=== PATIENT | female | born 1970 | race Caucasian/White ===

== ENCOUNTER 2020-01-28 23:05 | Emergency (ER) | payer BC, SELFPAY ==
[2020-01-28 23:17] VITALS: BP 123/88; PULSE 95; RESP 19; O2SAT 99; BMI 26.6
--- NOTE | 2020-01-28 23:21 | XR_ITS ---
PROCEDURE: XR TIBIA FIBULA RT 2V CLINICAL INDICATION: fall Posttraumatic pain COMPARISON: CR XR ANKLE RT MIN 3V from 01/28/2020 FINDINGS: No fracture or dislocation. No lytic or blastic change. There is normal mineralization. The joint spaces are well-preserved. No significant degenerative/arthritic changes. No erosive changes evident. Other findings:There is mild soft tissue swelling overlying the lateral malleolus. There is a faint calcific density at the tip of the lateral malleolus between the lateral malleolus and the talus which could represent a small avulsion injury. This measures approximately 2 mm. IMPRESSION: Possible small avulsion fracture of the lateral malleolus with soft tissue swelling otherwise negative Dictated by: Fawad Fine MD 01/29/2020 04:44 Fawad Fine MD in [place] 01/29/2020 04:44
--- NOTE | 2020-01-28 23:28 | HMH.EDLOEX ---
ED Disposition Clinical Impression: Ankle sprain and strain Disposition: Home, Self-Care Condition on Discharge: Good Instructions: DI for Ankle Sprain Additional Instructions: ice and see pcp and podiatry Referrals: Milind Hartley MD [Primary Care Provider] - Tracee Schmidt DPM [Staff Physician] - - Critical Care Critical Care Time: No Attestation: On , the high probability of a clinically significant, sudden or life threatening deterioration of the following system(s) required my full and direct attention, intervention and personal management. The time I documented below is in addition to time spent performing reported procedures but includes the following listed in this critical care notation. Medical Decision Making - Medical Records Medical records reviewed: Yes: I reviewed the patient's medical records. - Mario Inquiry Pt receiving controlled substance: No Vital Signs: 01/28/20 23:17 Pulse Rate [Right Brachial] 95 H Respiratory Rate 19 Blood Pressure [Right Arm] 123/88 Blood Pressure Mean [Right Arm] 99 Blood Pressure Source [Right Arm] Automatic Cuff Blood Pressure Position [Right Arm] Sitting 02 Sat by Pulse Oximetry 99 Oxygen Delivery Method Room Air - Lab Data Lab results reviewed: Yes: I reviewed the patient's lab results. Orders (Tests/Meds): ORDERS Category Date Time Status XR ankle RT min 3V Stat Exams 01/28/20 23:21 Taken XR tibia fibula RT 2V Stat Exams 01/28/20 23:22 Taken - Radiology Data #1 Image(s): Tib/Fib, Ankle Image Reviewed: Yes I reviewed the patient's radiology image Preliminary Findings: No Fracture Seen Lower Extremity Injury HPI - General Chief Complaint: Extremity Injury, Lower Stated Complaint: AO 1900 injury right ankle Time Seen by Provider: 01/28/20 23:25 Mode of Arrival: Family Vehicle Source of Information: Patient, Medical Record Limitations: No Limitations Description of Symptoms (Recalled from ER Triage Doc. by RN): right ankle injury approx 4 hours ago; swelling noted, without improvement. took acetaminophen at home for pain. just wants xray'd. - History of Present Illness HPI Narrative: acute eversion of rt ankle with pain/sts and dec wt bearing complaint: ankle injury Onset (ago): hour(s) Injury: Right: ankle Type of Injury: eversion Place: home Severity: moderate Context: walking Associated symptoms: snap/pop sensation, able to partially bear weight Other symptoms: none - Related Data Home Medications Medication Instructions Recorded Confirmed Atorvastatin Calcium [Atorvastatin 40 mg PO HS 12/15/18 12/15/18 40mg Tab] Celecoxib 200 mg PO DAILY 12/15/18 12/15/18 Omeprazole 20 mg PO DAILY 12/15/18 12/15/18 buPROPion HCL [Wellbutrin Xl] 300 mg PO DAILY 12/15/18 12/15/18 terbinafine HCL [Terbinafine HCl] 250 mg PO DAILY 12/15/18 12/15/18 Previous Rx's Medication Instructions Recorded Ciprofloxacin HCl [Cipro 500mg 500 mg PO BID 5 Days #10 tab 12/15/18 Tab] Allergies Allergy/AdvReac Type Severity Reaction Status Date / Time No Known Allergies Allergy Verified 12/15/18 19:52 [facility] History - Hepatitis A Screen Drug use history?: No High risk sexual behaviors?: No History of sexually transmitted infection?: No Currently employed?: No Childcare worker?: No Do you have indoor plumbing?: Yes Do you have electricity?: Yes Attestation statement:: This patient has been screened for Hepatitis A risk factors. I have reviewed the patient's past medical history: Yes - Social History Alcohol Intake: never Occupational Status: employed Housing: house Household Members: spouse, children ROS Obtained: Yes All systems reviewed & no additional complaints - Constitutional Constitutional: Denies fever(s) - Musculoskeletal Musculoskeletal: Reports as per HPI, Reports joint pain, Reports joint swelling, Reports limited range of motion - Integumentary/Breasts Skin/Breast: Den
[2020-01-29 00:02] VITALS: BP 120/84; PULSE 86; RESP 17; TEMP 37; O2SAT 99
== END 2020-01-29 00:06 | disposition home or self-care (01) ==
PROVIDERS: Emergency Provider Emergency Medicine; PCP Internal Medicine Adolescent Medicine
DX: S93.401A Sprain of unspecified ligament of right ankle, initial encounter (principal)
CPT/HCPCS: 73590; 73610; 99281

== ENCOUNTER → 2020-03-03 15:07 | Outpatient (CLI) | payer BC, SELFPAY ==
[2020-03-05 15:39] LABS: Covid-19 Nasal PCR Sendout Lex Not Detected
== END ==
PROVIDERS: PCP Internal Medicine Adolescent Medicine; Visit Provider Internal Medicine Adolescent Medicine
DX: Z03.818 Encounter for observation for suspected exposure to other biological agents ruled out (principal)
CPT/HCPCS: U0004

== ENCOUNTER → 2020-03-13 15:15 | Outpatient (CLI) | payer BC, SELFPAY ==
--- NOTE | 2020-03-13 15:26 | XR_ITS ---
PROCEDURE: XR ANKLE WT BEARING RT MIN 3V CLINICAL INDICATION: sprain Pain COMPARISON: CR XR ANKLE RT MIN 3V from 01/28/2020 FINDINGS: No fracture or dislocation. No lytic or blastic change. There is normal mineralization. The joint spaces are well-preserved. No significant degenerative/arthritic changes. No erosive changes evident. Other findings:None. IMPRESSION: No acute findings. Dictated by: Fawad Fine MD 03/13/2020 16:41 Fawad Fine MD in [place] 03/13/2020 16:41
== END ==
PROVIDERS: PCP Internal Medicine Adolescent Medicine; Visit Provider Podiatrist
DX: S93.401A Sprain of unspecified ligament of right ankle, initial encounter (principal)
CPT/HCPCS: 73610

== ENCOUNTER → 2020-03-25 14:41 | Outpatient (CLI) | payer BC, SELFPAY ==
--- NOTE | 2020-03-25 14:41 | MR_ITS ---
PROCEDURE: MR ANKLE RT WO/W CON CLINICAL INDICATION: right ankle pain TWISTED ANKLE IN JANUARY, MEDIAL ANKLE PAIN AND SWELLING. SHOOTING PAINS FROM ARCH UP INTO ANKLE. COMPARISON: CR XR ANKLE WT BEARING RT MIN 3V from 03/13/2020 TECHNIQUE: Routine multiplanar multi echo sequences are performed without and with gadolinium enhancement. FINDINGS: No fracture or bone bruise evident. The ATFL, PT FL, and deltoid ligament appear intact. Small amount fluid is present about the ankle joint and along posterior aspect of the talus and talocalcaneal area. The posterior tibialis, flexor digitorum longus, and flexor hallucis longus tendons appear intact. The Achilles tendon appears intact. Anterior extensor tendons have an unremarkable appearance. The peroneus brevis tendon has an unremarkable appearance. There is some linear increased T2 signal involving the mid aspect of the peroneus longus tendon at the level of the distal talus and could be due to partial split tear or an area of tendinitis. This is best seen on the axial STIR images. The plantar fascia has an unremarkable appearance. IMPRESSION: Possible partial split tear versus tendinitis of the peroneus longus tendon at the region of the distal talus. Small ankle joint effusion with a small amount fluid posterior to the talus suggesting mild bursitis at this area. Dictated by: Fawad Fine MD 03/28/2020 08:18 Fawad Fine MD in [place] 03/28/2020 08:18
== END ==
PROVIDERS: PCP Internal Medicine Adolescent Medicine; Visit Provider Podiatrist
DX: M25.371 Other instability, right ankle (principal); M25.571 Pain in right ankle and joints of right foot; S82.61XA Displaced fracture of lateral malleolus of right fibula, initial encounter for closed fracture
CPT/HCPCS: 73723; A9576

== ENCOUNTER 2020-04-23 15:00 | Outpatient (RCR) | payer BC, SELFPAY ==
--- NOTE | 2020-04-14 17:16 | HMH.PTOPEV ---
PT Outpatient Evaluation Rehab PT Outpatient Evaluation Start: 04/14/20 16:18 Freq: Status: Active Protocol: Document 04/14/20 16:18 [email or web address] (Rec: 04/14/20 17:16 [email or web address] [id number]) Electronically Signed By Se Damon, PT 04/14/20 16:18 Outpatient Therapy Subjective History Subjective History Pt. is a 49 year old female who presents to Outpatient PT clinic w/ complaints of chronic and activity dependent RLE ankle/ ft.(lateral/dorsum) P! of traumatic onset since 01/28/20 . Pt. reports coming off her front porch and missing her last step, states hearing a ripping sound in her ankle. Recent diagnostic imaging positive for a possible tear of a tendon (peroneal longus, see imaging) and increased swelling per pt. report. Pt. denies having injections for current pathology. Pt. reports donning a sock boot for one day, but stated it increasing her symptoms, states wrapping /donning SMITH bandage around RLE ankle/ft. that provides some symptom relief. Pt. RTMD 05/12/20. Current medications include Aleve, Wellbutrin, Lipitor, and Prilosec. PMH includes BLE grtr. trochanter hip bursitis and a Cholecystectomy. Chief Complaint Pain,Stiff,Swelling,Weakness Symptom Type Ache,Sharp,Tingling Symptoms Relieved By Rest/Positioning,Ice,Brace/ Support Symptoms Aggravated By Standing,Physical Activity, Twisting,Walking Prior Functional Limitations None Current Functional Limitations Housework,Standing,Squatting, Recreation Activity,Walking, Stairs,Balance Symptom Description Activity Dependent Level of pain today (0-10) 0 Pain scale - at its best (0-10) 0 Pain scale - at its worst (0-10) 5 Ankle/Foot Eval Gait Observation General Gait Pattern Observation Antalgic Gait,Decrease Weight Bear (R),Decrease Stride Lngth
== END 2020-05-15 16:07 | disposition home or self-care (01) ==
LOC: PT.CARL 15:00
PROVIDERS: PCP Internal Medicine Adolescent Medicine; Visit Provider Podiatrist
DX: S93.401A Sprain of unspecified ligament of right ankle, initial encounter; S96.911A Strain of unspecified muscle and tendon at ankle and foot level, right foot, initial encounter; M25.371 Other instability, right ankle
CPT/HCPCS: 97010; 97014; 97110; 97112; 97163; G0283

== ENCOUNTER → 2020-11-25 16:08 | Outpatient (CLI) | payer BC, SELFPAY ==
--- NOTE | 2020-11-25 16:11 | CA_ITS ---
APPROVED REPORT Left Lower Extremity Venous Study for DVT. Hydro Pneumatic Tester: JESUS ALBERTO Indications Lower Extremity Pain: Left Patient states she started having pain on 11/16/20. Denies trauma. Vein Imaging CFV (L): compressive, spontaneous, phasic, augmentation FEM (L): compressive, spontaneous, phasic, augmentation POP (L): compressive, spontaneous, phasic, augmentation PTV (L): Compressible GSV (L): compressive, spontaneous, phasic, augmentation SSV (L): Compressible Peroneals (L):Compressible GAS (L): Compressible Findings No evidence of DVT or superficial thrombophlebitis in the veins scanned of the left lower extremity. Conclusion No evidence of DVT or superficial thrombophlebitis in the veins scanned of the left lower extremity. Electronically signed by : Fawad Fine MD 11/25/2020 16:52:56
== END ==
PROVIDERS: PCP Internal Medicine Adolescent Medicine; Visit Provider Internal Medicine Adolescent Medicine
DX: R60.0 Localized edema (principal)
CPT/HCPCS: 93971

== ENCOUNTER → 2022-04-26 09:41 | Outpatient (CLI) | payer BC, SELFPAY ==
[2022-04-26 10:33] LABS: Basophils % 0.4 % (0.1-2.0); Eosinophils % 0.6 % (0.1-12.0); Hematocrit 40.6 % (37.0-47.0); Hemoglobin 13.8 g/dL (12.2-16.2); Lymphocytes # 1.4 K/mm3 (0.7-4.5); Lymphocytes % 23.2 % (10-50); Mean Corpuscular HGB Conc 33.9 g/dL (31.8-35.4); Mean Corpuscular Hemoglobin 30.5 pg (27.0-31.2); Mean Corpuscular Volume 89.9 fl (81-99); Mean Platelet Volume 8.8 fl (7.4-10.4); Monocytes # 0.3 K/mm3 (0.1-1.0); Monocytes % 4.6 % (1.7-9.3); Neutrophils # 4.3 K/mm3 (1.8-7.8); Platelet Count 210 K/mm3 (142-424); Red Blood Count 4.52 M/mm3 (4.20-5.40); Red Cell Distribution Width 13.1 % (11.5-17.5); White Blood Count 6.1 K/mm3 (4.8-10.8)
[2022-04-26 10:50] LABS: Hemoglobin A1C 5.3 % (4.0-6.0)
[2022-04-26 10:57] LABS: Alanine Aminotransferase 17 U/L (12-78); Albumin Level 4.1 g/dl (3.5-5.0); Alkaline Phosphatase 100 U/L (38-126); Anion Gap 10.8 mEq/L (5-15); Aspartate Amino Transferase 20 U/L (14-36); Bilirubin,Total 0.9 mg/dl (0.2-1.3); Blood Urea Nitrogen 13 mg/dl (7-17); Calcium 8.6 mg/dl (8.4-10.2); Carbon Dioxide 28 mmol/L (22.0-30.0); Chloride 105 mmol/L (98-107); Chol/HDL Ratio 2.4 (1-3.5); Cholesterol 135 mg/dl (140-200); Estimated Glomerular Filt Rate 76 ml/min (>60); GFR (African American) 92 ML/MIN (>60); Globulin 2.1 g/dL (1.3-3.2); Glucose 90 mg/dl (74-100); HDL Cholesterol 57 mg/dl (40-60); Magnesium 1.8 mg/dl (1.6-2.3); Potassium 3.8 mmoL/L (3.5-5.1); Sodium 140 mmol/L (136-145); Total Protein,Serum 6.2 g/dl (6.3-8.2); Triglycerides 41 mg/dl (30-150); VLDL Cholesterol 8 mg/dL (0-40)
[2022-04-26 11:08] LABS: Direct LDL Cholesterol 59.77 mg/dL (100-129)
[2022-04-26 11:14] LABS: Free Thyroxine Index 2.2 ug/dL (5.93-13.13); T4 (Thyroxine) 7.2 ug/dl (5.53-11.0); Triiodothryronine (T3) Uptake 30 % (23.5-40.5)
[2022-04-26 11:15] LABS: 25-OH Vitamin D, Total 18.9 ng/mL (30-100)
[2022-04-26 11:28] LABS: Thyroid Stimulating Hormone 0.83 uIU/mL (0.465-4.68)
[2022-04-26 11:48] LABS: Vitamin B12 290 pg/mL (239-931)
[2022-04-27 10:50] LABS: Insulin Level Total 10.5 uIU/mL (2.6-24.9)
== END ==
PROVIDERS: PCP Internal Medicine Adolescent Medicine; Visit Provider Internal Medicine Adolescent Medicine
DX: Z00.00 Encounter for general adult medical examination without abnormal findings (principal); M54.50 Low back pain, unspecified; E78.2 Mixed hyperlipidemia; M62.838 Other muscle spasm; R63.5 Abnormal weight gain; E55.9 Vitamin D deficiency, unspecified; Z79.899 Other long term (current) drug therapy
CPT/HCPCS: 36415; 80053; 80061; 82306; 82607; 83036; 83525; 83735; 84436; 84443; 84479; 85025

== ENCOUNTER → 2022-10-07 16:31 | Outpatient (CLI) | payer BC, OTHER, SELFPAY ==
--- NOTE | 2022-10-07 16:32 | CA_ITS ---
FINAL REPORT TECHNIQUE: Color Doppler, duplex Doppler and compression sonography of the left lower extremity deep venous systems was performed. CLINICAL HISTORY: rule out dvt, left lateral calf pain x 2 weeks FINDINGS: There is no evidence of deep venous thrombosis from the level of the groin to the calf. The veins are patent and compressible. IMPRESSION: No evidence of deep venous thrombosis left lower extremity. Reviewed, Interpreted and Dictated by Ricardo Falcon III, MD Transcribed by Janay Baez Authenticated and [facility]
== END ==
PROVIDERS: PCP Internal Medicine Adolescent Medicine; Visit Provider Nurse Practitioner Family
DX: M79.662 Pain in left lower leg (principal)
CPT/HCPCS: 93971

== ENCOUNTER → 2022-10-07 17:05 | Outpatient (CLI) | payer BC, OTHER, SELFPAY ==
[2022-10-07 17:43] LABS: D-Dimer 0.94 ug/mL (0.0-0.5)
[2022-10-09 08:17] LABS: FSH 15.2 mIU/mL (.); LH 33.3 mIU/mL (.)
[2022-10-14 20:24] LABS: Estrogen 101 pg/mL (.)
== END ==
PROVIDERS: PCP Nurse Practitioner Family; Visit Provider Nurse Practitioner Family
DX: R53.83 Other fatigue (principal)
CPT/HCPCS: 82672; 83001; 83002; 85378

== ENCOUNTER 2023-10-10 11:13 | Outpatient (CLI) | payer BC, SELFPAY ==
--- NOTE | 2023-10-10 11:17 | XR_ITS ---
FINAL REPORT TECHNIQUE: 5 views CLINICAL HISTORY: Left arm pain COMPARISON: None FINDINGS: There is no fracture present. Mild and moderate degenerative change is present, greatest at the C5-6 and C6-7 levels. There is mild retrolisthesis of C5 on C6. No acute bony abnormality is identified. IMPRESSION: Mild and moderate degenerative change as described above. Reviewed, Interpreted and Dictated by Ricardo Falcon III, MD Transcribed by Clementine Cox Authenticated and [facility]
--- NOTE | 2023-10-10 11:17 | XR_ITS ---
FINAL REPORT CLINICAL HISTORY: Left shoulder pain COMPARISON: None FINDINGS: LEFT SHOULDER 3 views demonstrate no acute fracture or dislocation. There is mild elevation of the distal clavicle, and a mild acromioclavicular separation is not excluded. The visualized bony structures are well aligned. No soft tissue abnormality is seen. IMPRESSION: Mild elevation of the distal clavicle, and a mild acromioclavicular separation is not excluded. Reviewed, Interpreted and Dictated by Ricardo Falcon III, MD Transcribed by Clementine Cox Authenticated and [facility]
--- NOTE | 2023-10-10 11:17 | XR_ITS ---
FINAL REPORT CLINICAL HISTORY: Paresthesia BLE COMPARISON: None FINDINGS: Note that only a flexion view was obtained, lateral view and extension was not obtained during this exam. The vertebrae are normal height. Alignment is within normal limits. Mild and moderate degenerative changes present with multilevel facet arthropathy. Prevertebral soft tissues are unremarkable. There is no instability with flexion. IMPRESSION: Mild and moderate degenerative change with multilevel facet arthropathy. Only a flexion view was obtained, and no instability is noted with flexion. Reviewed, Interpreted and Dictated by Ricardo Falcon III, MD Transcribed by Clementine Cox Authenticated and [facility]
--- NOTE | 2023-10-10 11:17 | XR_ITS ---
FINAL REPORT CLINICAL HISTORY: Right hip pain COMPARISON: None FINDINGS: RIGHT HIP Two views of the right hip demonstrate no acute fracture or dislocation. The joint spaces appear normal. The visualized bony structures are well aligned. No soft tissue abnormality is seen. Note is made of an IUD in the pelvis. IMPRESSION: No acute bony abnormality. Reviewed, Interpreted and Dictated by Ricardo Falcon III, MD Transcribed by Clementine Cox Authenticated and [facility]
[2023-10-10 13:13] LABS: Basophils % 0.4 % (0.1-2.0); Eosinophils # 0.1 K/mm3 (0.0-0.4); Hematocrit 44.4 % (37.0-47.0); Hemoglobin 14.7 g/dL (12.2-16.2); Lymphocytes # 1.3 K/mm3 (0.7-4.5); Lymphocytes % 22.5 % (10-50); Mean Corpuscular HGB Conc 33.1 g/dL (31.8-35.4); Mean Corpuscular Volume 93.6 fl (81-99); Mean Platelet Volume 8.8 fl (7.4-10.4); Monocytes # 0.3 K/mm3 (0.1-1.0); Monocytes % 4.8 % (1.7-9.3); Neutrophils % 71.4 % (37.0-80.0); Platelet Count 197 K/mm3 (142-424); Red Blood Count 4.75 M/mm3 (4.20-5.40); Red Cell Distribution Width 13.7 % (11.5-17.5); White Blood Count 5.6 K/mm3 (4.8-10.8)
[2023-10-10 13:55] LABS: Hemoglobin A1C 5.2 % (4.0-6.0)
[2023-10-10 14:07] LABS: Alanine Aminotransferase 30 U/L (12-78); Albumin Level 4.6 g/dl (3.5-5.0); Albumin/Globulin Ratio 1.9 (1.1-1.8); Alkaline Phosphatase 107 U/L (38-126); Anion Gap 15.1 mEq/L (5-15); Aspartate Amino Transferase 27 U/L (14-36); Blood Urea Nitrogen 20 mg/dl (7-17); Calcium 9.5 mg/dl (8.4-10.2); Carbon Dioxide 28 mmol/L (22.0-30.0); Chloride 102 mmol/L (98-107); Estimated Glomerular Filt Rate 75 ml/min (>60); GFR (African American) 91 ML/MIN (>60); Globulin 2.4 g/dL (1.3-3.2); Glucose 87 mg/dl (74-100); Potassium 4.1 mmoL/L (3.5-5.1); Sodium 141 mmol/L (136-145)
[2023-10-10 14:16] LABS: C-Reactive Protein 3.3 mg/L (0-4)
[2023-10-10 14:25] LABS: Free Thyroxine Index 2.2 ug/dL (5.93-13.13); T4 (Thyroxine) 7.7 ug/dl (5.53-11.0); Triiodothryronine (T3) Uptake 29 % (23.5-40.5)
[2023-10-10 14:39] LABS: Thyroid Stimulating Hormone 0.76 uIU/mL (0.465-4.68)
[2023-10-10 14:56] LABS: Vitamin B12 893 pg/mL (239-931)
[2023-10-10 15:17] LABS: Erythrocyte Sedimentation Rate 5 mm/hr (0-30)
[2023-10-10 17:36] LABS: Iron 102 ug/dL (37-170)
[2023-10-10 17:45] LABS: Total Iron Binding Capacity 285 ug/dL (265-497)
[2023-10-22 12:45] LABS: Antinuclear Antibodies (ANA) Negative
== END 2023-10-10 23:59 | disposition home or self-care (01) ==
LOC: LAB 11:13
PROVIDERS: PCP Family Medicine; Visit Provider Nurse Practitioner Family
DX: M25.50 Pain in unspecified joint (principal); R20.2 Paresthesia of skin; M25.512 Pain in left shoulder; M54.9 Dorsalgia, unspecified
CPT/HCPCS: 36415; 72050; 72114; 73030; 73502; 80050; 80053; 82607; 83036; 83540; 83550; 84436; 84443; 84479; 85025; 85651; 86038; 86140

== ENCOUNTER 2023-10-31 08:17 | Outpatient (CLI) | payer BC, SELFPAY ==
--- NOTE | 2023-10-31 08:18 | MR_ITS ---
FINAL REPORT TECHNIQUE: Multiplanar MR without gadolinium enhancement CLINICAL HISTORY: Moderate degenerative disc disease, paresthesias FINDINGS: Limited images of the posterior fossa are unremarkable. Alignment is normal. Cervical spinal cord shows normal signal and contour. C2-3: Unremarkable C3-4: Unremarkable C4-5: Mild annular disc bulge. Mild facet arthropathy. C5-6: Moderate annular disc bulge with endplate spurring. Findings asymmetric to the left. Mild central canal stenosis. Mild left neural foraminal narrowing. C6-7: Mild annular disc bulge. Small central disc protrusion. No canal stenosis or nerve root compression. C7-T1: Minimal annular disc bulge without canal stenosis or nerve root compression IMPRESSION: Multilevel degenerative disc disease most pronounced C5-6 with mild central canal stenosis and neural foraminal narrowing Authenticated and [facility]
== END 2023-10-31 23:59 | disposition home or self-care (01) ==
PROVIDERS: PCP Family Medicine; Visit Provider Family Medicine
DX: R20.2 Paresthesia of skin (principal)
CPT/HCPCS: 72141

== ENCOUNTER 2023-12-13 16:11 | Outpatient (CLI) | payer BC, OTHER, SELFPAY ==
--- NOTE | 2023-12-13 16:21 | MR_ITS ---
FINAL REPORT CLINICAL HISTORY: RADICULAR PAIN ON RIGHT SIDE COMPARISON: None FINDINGS: Multiplanar MR imaging of the lumbar spine was performed without contrast. On the sagittal T2-weighted images, disc degeneration is seen at the L3-4 and L4-5 levels. The vertebral alignment is normal. There is no evidence of fracture. Several vertebral body hemangiomas are identified. The conus has an unremarkable appearance. T12-L1: There is no significant canal stenosis or neural foraminal narrowing. L1-2: There is no significant canal stenosis or neural foraminal narrowing. L2-3: There is no significant canal stenosis or neural foraminal narrowing. L3-4: An annular bulge is present. There is a small left foraminal disc protrusion, with mild left neural foraminal narrowing. L4-5: An annular bulge is present. There is a small left foraminal disc protrusion, which produces left L5 nerve root impingement and mild left neural foraminal narrowing. L5-S1: An annular bulge is present. There is no significant canal stenosis or neural foraminal narrowing. There is an 8 mm focus of decreased signal in the L5 vertebral body, a finding of uncertain significance. Recommend follow-up MRI or bone scan for further evaluation. IMPRESSION: Multilevel degenerative disc disease and spondylosis as described. Reviewed, Interpreted and Dictated by Ricardo Falcon III, MD Transcribed by Clementine Cox Authenticated and . [facility]
== END 2023-12-13 23:59 | disposition home or self-care (01) ==
PROVIDERS: PCP Family Medicine; Visit Provider Neurological Surgery
DX: M54.10 Radiculopathy, site unspecified (principal)
CPT/HCPCS: 72148

== ENCOUNTER 2024-03-13 12:07 | Outpatient (CLI) | payer BC, OTHER, SELFPAY ==
--- NOTE | 2024-03-13 12:14 | XR_ITS ---
FINAL REPORT CLINICAL HISTORY: left shoulder pain COMPARISON: 10/10/2023 FINDINGS: RIGHT SHOULDER Two views demonstrate no acute fracture or dislocation. Mild degenerative change of the glenohumeral joint is present. The visualized bony structures are well aligned. No soft tissue abnormality is seen. IMPRESSION: Mild degenerative change of the glenohumeral joint without acute bony abnormality. Reviewed, Interpreted and Dictated by Ricardo Falcon III, MD Transcribed by Clementine Cox Authenticated and [facility]
== END 2024-03-13 23:59 | disposition home or self-care (01) ==
LOC: RAD 12:08
PROVIDERS: PCP Family Medicine; Visit Provider Physician Assistant
DX: M25.512 Pain in left shoulder (principal)
CPT/HCPCS: 73030

== ENCOUNTER → 2024-05-14 06:11 | Outpatient (CLI) | payer BC, OTHER, SELFPAY | LOC: SL 06:12 | PROVIDERS: PCP Family Medicine; Visit Provider Family Medicine | DX: G47.33 Obstructive sleep apnea (adult) (pediatric) (principal); R53.83 Other fatigue | CPT/HCPCS: G0399 ==

== ENCOUNTER 2025-03-22 08:58 | Outpatient (CLI) | payer BC, OTHER, SELFPAY ==
[2025-03-22 16:57] LABS: Hematocrit 41.5 % (37.0-47.0); Hemoglobin 13.6 g/dL (12.2-16.2); Immature Granulocytes % 0.2 %; Mean Corpuscular HGB Conc 32.8 g/dL (31.8-35.4); Mean Corpuscular Hemoglobin 29.9 pg (27.0-31.2); Mean Corpuscular Volume 91.2 fl (81-99); Nucleated Red Blood Cells % 0 %; Platelet Count 203 K/mm3 (142-424); Red Blood Count 4.55 M/mm3 (4.20-5.40); Red Cell Distribution Width-SD 43.9 fL; White Blood Count 5.6 K/mm3 (4.8-10.8)
[2025-03-22 17:31] LABS: Hemoglobin A1C 5.2 % (4.0-6.0)
[2025-03-22 17:45] LABS: Chloride 104 mmol/L (98-107); Sodium 143 mmol/L (136-145)
[2025-03-22 17:46] LABS: Potassium 4.3 mmoL/L (3.5-5.1)
[2025-03-22 17:48] LABS: Alanine Aminotransferase 40 U/L (12-78); Alkaline Phosphatase 130 U/L (38-126); Aspartate Amino Transferase 32 U/L (14-36); Bilirubin,Total 0.4 mg/dl (0.2-1.3); Blood Urea Nitrogen 17 mg/dl (7-17); Cholesterol 134 mg/dl (140-200); Creatinine,Serum 0.80 mg/dl (0.52-1.04); Estimated Glomerular Filt Rate 75 ml/min (>60); GFR (African American) 91 ML/MIN (>60); Total Protein,Serum 6.6 g/dl (6.3-8.2); Triglycerides 44 mg/dl (30-150)
[2025-03-22 17:49] LABS: Calcium 8.6 mg/dl (8.4-10.2); Glucose 69 mg/dl (74-100); HDL Cholesterol 66 mg/dl (40-60)
[2025-03-22 18:05] LABS: 25-OH Vitamin D, Total 22.3 ng/mL (30-100)
[2025-03-22 18:20] LABS: Thyroid Stimulating Hormone 1.08 uIU/mL (0.465-4.68)
[2025-03-22 18:39] LABS: Hepatitis C Ab Qual. W/ RFX NEGATIVE (Negative); Vitamin B12 344 pg/mL (239-931)
[2025-03-22 19:47] LABS: Albumin Level 4.4 g/dl (3.5-5.0); Albumin/Globulin Ratio 2.0 (1.1-1.8); Anion Gap 17.3 mEq/L (5-15); Carbon Dioxide 26 mmol/L (22.0-30.0); Globulin 2.2 g/dL (1.3-3.2)
[2025-03-24 07:13] LABS: FSH 70.2 mIU/mL (.); LH 48.6 mIU/mL (.)
[2025-03-24 08:37] LABS: Hepatitis B Surface Antigen Negative (Negative)
== END 2025-03-22 23:59 | disposition home or self-care (01) ==
LOC: LAB.DROPOF 03-25 08:58
PROVIDERS: PCP Family Medicine; Visit Provider Nurse Practitioner Family
DX: E78.5 Hyperlipidemia, unspecified (principal); R53.83 Other fatigue; E66.9 Obesity, unspecified; M25.519 Pain in unspecified shoulder; Z11.4 Encounter for screening for human immunodeficiency virus [HIV]; Z11.59 Encounter for screening for other viral diseases
CPT/HCPCS: 80053; 80061; 82306; 82607; 82670; 83001; 83002; 83036; 84144; 84443; 85025; 86803; 87340; 87389